=== PATIENT | female | born 1990 | race Caucasian/White ===

== ENCOUNTER 2020-07-30 10:59 | Emergency (ER) | payer OTHER, SELFPAY ==
[2020-07-30] VITALS (21 sets, daily range): BP systolic 108–140; BP diastolic 69–93; PULSE 86–125; RESP 16–36; TEMP 36.5–36.7; O2SAT 97–100
--- NOTE | 2020-07-30 11:24 | W.ED.GENAD ---
Discharge Plan Disposition Patient Disposition: HOME Condition: Improving Discharge Details Clinical Impression: Spinal puncture headache Primary Care Provider: Unknown,Unknown ED Provider: Ana Hyman Home Meds and New Rx's Prescriptions: No Action acetazolamide 500 mg Capsule, Extended Release 500 mg PO BID RF: 0 lidocaine HCl [Lidocaine Viscous] 2 % Solution 0.5 ml topical TID RF: 0 dihydroergotamine 1 mg/mL Solution 1 mg IM TID PRNRF: 0 naratriptan [Amerge] 2.5 mg Tablet 2.5 mg PO PRN PRNRF: 0 hydroxyzine pamoate [Vistaril] 25 mg Capsule 25 mg PO BID PRNRF: 0 naproxen sodium [Anaprox DS] 550 mg Tablet 550 mg PO BID PRNRF: 0 magnesium 250 mg Tablet 500 mg PO DAILY RF: 0 levonorgestrel-ethinyl estrad 0.15-0.03 mg Tablet 1 tab PO DAILY RF: 0 ketorolac [Toradol] 30 mg/mL (1 mL) Solution 30 mg IM Q30D PRNRF: 0 sertraline 50 mg Tablet 50 mg PO DAILY RF: 0 rimegepant 75 mg Tablet,Disintegrating 75 mg PO Q48H PRNRF: 0 ondansetron 8 mg Tablet,Disintegrating 8 mg PO Q8H PRNRF: 0 gabapentin 300 mg Capsule 300 mg PO HS RF: 0 galcanezumab-gnlm 120 mg/mL Pen Injector 120 mg SUBCUT Q28D RF: 0 diclofenac sodium [Voltaren] 1 % Gel 2 g TOPICAL QID PRNRF: 0 Discharge Instructions Instructions: Epidural Blood Patch (DC) Additional Instructions: Follow up with primary care provider in 3-5 days. Return to ED sooner if any worsening pain, fever, stiff neck, ringing your ears, vomiting or concerns. Increase oral fluids. Please take Tylenol or Ibuprofen with food every 4-6 hours as needed for pain and swelling. Medical Decision Making 30-year-old female presents to the ER with chief complaint of status post lumbar puncture on 07/27/2020. Patient has a past medical history of idiopathic intracranial hypertension and was seen at [facility] pain clinic for a therapeutic lumbar puncture for removal of CSF. patient reports headache which is worsened upon standing or sitting up for approximately an hour. Headache lessens when lying down. She has not taken any medications today prior to arrival. She was in Pers by her neurologist at [facility] to come into the ER for a possible blood patch. She denies any fever chills she does endorse nausea no vomiting. 1136: Anesthesia paged. 1142: Spoke with Mello with anesthesiology regarding patient case and details, he will call me back. 1159: Anesthesia agrees to come and perfom LP for blood patch soon. 1233: Anesthesia at for patient eval. And procedure. 1301: Spoke with Anesthesia, who reports that patient is to lay flat for the next hour, Patient received Versed 2mg IV for procedural sedation, no complications reported, Patient awakens easily to stimuli, VSS, on monitor. 1405: Patient is awake and c/o slight lower back pain, instructed to lay flat for 5 more minutes, states need to urinate. Given ice pack. 1414: Patient up to bathroom, headache has improved. VSS, instructed to follow-up with PCP discussed return strict return instructions, verbalized understanding. This text was generated using Geniation system, please disregard any oddities of phrase or misspellings. HPI General Mode of arrival: ambulatory. Date/Time Provider Initiated Documentation: 07/30/20 11:00. Limitations to Documentation: no limitations. Information obtained by: patient and old records reviewed ([facility] [place] HPI Narrative: 30-year-old female presents to the ER with chief complaint of status post lumbar puncture on 07/27/2020. Patient has a past medical history of idiopathic intracranial hypertension and was seen at [facility] pain clinic for a therapeutic lumbar puncture for removal of CSF. patient reports headache which is worsened upon standing or sitting up for approximately an hour. Headache lessens when lying down. She has not taken any medications today prior to arrival. She was in Pers by her neurologist at [facility] to come into the ER for a possible blood patch. She denies any fever chills she does endorse nausea no vomiting. Related Data Home Medications Medication Instructions Recorded Confirmed acetazolamide 500 mg PO BID 07/30/20 07/30/20 diclofenac sodium [Voltaren] 2 g TOPICAL QID PRN 07/30/20 07/30/20 dihydroergotamine 1 mg IM TID PRN 07/30/20 07/30/20 gabapentin 300 mg PO HS 07/30/20 07/30/20 galcanezumab-gnlm 120 mg SUBCUT Q28D 07/30/20 07/30/20 hydroxyzine pamoate [Vistaril] 25 mg PO BID PRN 07/30/20 07/30/20 ketorolac [Toradol] 30 mg IM Q30D PRN 07/30/20 07/30/20 levonorgestrel-ethinyl estrad 1 tab PO DAILY 07/30/20 07/30/20 lidocaine HCl [Lidocaine Viscous] 0.5 ml TOPICAL TID 07/30/20 07/30/20 magnesium 500 mg PO DAILY 07/30/20 07/30/20 naproxen sodium [Anaprox DS] 550 mg PO BID PRN 07/30/20 07/30/20 naratriptan [Amerge] 2.5 mg PO PRN PRN 07/30/20 07/30/20 ondansetron 8 mg PO Q8H PRN 07/30/20 07/30/20 rimegepant 75 mg PO Q48H PRN 07/30/20 07/30/20 sertraline 50 mg PO DAILY 07/30/20 07/30/20 Allergies Allergy/AdvReac Type Severity Reaction Status Date / Time hydromorphone [From Dilaudid] Allergy Severe Anaphylaxis Unverified 07/30/20 11:10 amoxicillin [From Augmentin] AdvReac Intermediate throat/hive Unverified 07/30/20 11:29 s/itching clavulanic acid AdvReac Intermediate throathives Unverified 07/30/20 11:29 [From Augmentin] /itching silver AdvReac Intermediate blisters/peels Unverified 07/30/20 11:30 [From Tegaderm AG Mesh] skin/rash General Stated Complaint: Headache CADE: 3 Review of Systems Narrative: Constitutional: Negative for weight loss, alert and oriented, well groomed, normal body habitus, appears comfortable. HEENT: Denies trauma, blurry vision, nasal discharge, sore throat, trouble swallowing. Positive headache worse when sitting up or standing up Chest: Denies chest pain, palpitations, irregular rhythm, hypertension. Respiratory: Denies Shortness of breath, cough, hemoptysis. GI: Denies abdominal pain, vomiting, diarrhea, constipation. : Denies dysuria, hematuria, flank pain, rectal bleeding. Neuro: Denies dizziness, blurry vision, weakness, syncope, or facial numbness. Hematologic: Denies easy bruising, intolerance to heat or cold, hair loss. [facility] Medical History Idiopathic intracranial hypertension Social History Smoking/Tobacco Use Status: Never Smoking risk assessment performed?: Yes Alcohol Intake: current Alcohol Intake frequency: a few times a month Drug use: Never Substance use type: does not use Do you feel safe at home: Yes Do you feel safe in your relationship?: Yes Exam Narrative Exam Narrative: Constitutional: Alert and oriented x3. Appears stated age. Normal body habitus. Head: Normocephalic, no trauma. Eyes: Pupils PERRLA, Red reflex noted, EOM's intact. Eyelids symmetrical without lesions, discharge, or swelling. ENT: Bilateral TM's WNL, External ear normal to inspection, no mastoid TTP, swelling, or erythema, Nasal turbinates WNL, no nasal discharge. Normal dentition, Posterior pharynx WNL, no exudate. Chest: RRR, Normal S1, S2, distal pulses intact. Resp: Lungs clear to auscultation bilaterally, no wheezes, rales, or rhonchi. Musculoskeletal: Normal gait, 5/5 strength to all four extremities. Skin: No suspicious rashes or lesions. Capillary refill less than 2 sec. Neurologic: Cranial nerves II-XII intact. Alert and oriented x 3. No focal neuro deficits. Hematologic/Lymphatic: No ecchymosis, no lymphadenopathy. Course Vital Signs Vital signs: Vital Signs Temperature 36.7 C 07/30/20 11:03 Pulse 112 H 07/30/20 11:03 Respiratory Rate 16 07/30/20 11:03 Blood Pressure 140/93 H 07/30/20 11:03 Pulse Oximetry 99 07/30/20 11:03 Temperature 36.7 C 07/30/20 11:03 Temperature Source Skin 07/30/20 11:03 Pulse 112 H 07/30/20 11:03 Respiratory Rate 16 07/30/20 11:03 Respiratory Effort 07/30/20 11:14 Blood Pressure 140/93 H 07/30/20 11:03 Blood Pressure Position Sitting 07/30/20 11:03 Pulse Oximetry 99 07/30/20 11:03 Oxygen Delivery Method Room Air 07/30/20 11:03 Oxygen Flow Rate 0 07/30/20 11:03 Pain Level 8 07/30/20 11:16
[2020-07-30] MEDS: Normal Saline 1,000 ML 1000 ML IV (11:59)
[2020-07-30] MEDS: Ondansetron 4 MG/2 ML VIAL IVP (12:07)
[2020-07-30] MEDS: Normal Saline Flush 10 ML SYR IVP (12:08)
--- NOTE | 2020-07-30 13:07 | W.ANESNEU ---
Epidural Blood Patch Date Performed: 07/30/20 Procedure Time: 13:28 Procedure Location: Emergency Department (Room 3) Requesting Provider: Ana Hyman Reason Performed: Post Dural Puncture Headache ([place] LP [place]IP [place] [facility]. Current pain score 5/10) Standard Monitors Applied: ECG, Blood Pressure and SpO2 Patient Position: Sitting Timeout Performed: Yes Sedation Given (Indicate Dose Given): Versed IV (2 mg) Patient Mental Status: Sedate with meaningful communication Sterility: Hand Hygiene, Surgical Cap, Surgical Mask, Sterile Gloves and Sterile Drape/Sheet Procedure Location: L3-L4 Interspace Epidural Needle: Tuohy 17 Guage Needle Length: 3.5 Inch Needle Approach: Midline Blood Patch Procedure: Skin Prepped, Sterile Drape Placed, 1% Lidocaine to skin and subcutaneous tissue with 25G needle, Tuohy Needle placed, RAO to Saline Used, Negative Heme, Negative CSF Flow, Sterile Blood Draw Performed, Blood Injected until Pain or Pressure felt by patient (Patient reported relief of headache and pressure in the back at 5 ml of autologous blood) and Pt. kept in supine position for 60 minutes post procedure (Requested ER to maintain supine position for one hour. Kept on VS for 30 minutes due to Versed. ) Amount of Blood Injected into Epidural Space (ml): 5 Post Procedure Pain score (0-10): 3 Paresthesia: Left (Patient reported transient pain to left hip) Paresthesia Duration: Transient Ultrasound: Used to mayito site Number of Attempts (See previous attempts in note section): 2 Procedure Tolerated: No Complications and Patient tolerated well (Some anxiety during procedure) Procedure Outcome: Successful Performed By: Yanet Loomis Supervised By: Howard Denton
--- NOTE | 2020-07-30 13:22 | NUR.NOTE ---
versed pulled and administered by anesthesia Nursing Note:
== END 2020-07-30 14:19 | disposition home or self-care (01) ==
PROVIDERS: Emergency Provider Registered Nurse Emergency
DX: G97.1 Other reaction to spinal and lumbar puncture (principal); Y84.4 Aspiration of fluid as the cause of abnormal reaction of the patient, or of later complication, without mention of misadventure at the time of the procedure
CPT/HCPCS: 62273; 81025; 96361; 96374; 99284; J2405

== ENCOUNTER 2021-04-15 16:28 | Outpatient (REF) | payer OTHER, SELFPAY ==
[2021-04-15 20:00] LABS: Anion Gap 11.6 mmol/L (3-11); BUN 9 mg/dL (7-18); CO2 23.4 mmol/L (21.0-32.0); CREATININE 0.7 mg/dL (0.55-1.02); Calcium 8.9 mg/dL (8.5-10.1); Chloride 104 mmol/L (98-107); Glucose 102 mg/dL (74-106); Potassium 3.6 mmol/L (3.5-5.1); Sodium 139 mmol/L (136-145); TSH (W/Ref FT4) 0.64 uIU/mL (0.36-3.74)
== END 2021-04-15 16:29 | disposition home or self-care (01) ==
LOC: NCHCN 16:28
PROVIDERS: Visit Provider Physician Assistant
DX: R00.2 Palpitations (principal); G93.2 Benign intracranial hypertension
CPT/HCPCS: 80048; 84443